=== PATIENT | male | born 1990 | race Caucasian/White ===

== ENCOUNTER 2023-12-21 07:59 | Emergency (ER) | payer SELFPAY | END 2023-12-21 10:16 | disposition home or self-care (01) | LOC: DL.ED 07:59 | DX: S89.91XA Unspecified injury of right lower leg, initial encounter (principal); M23.91 Unspecified internal derangement of right knee; Z79.899 Other long term (current) drug therapy; X50.1XXA Overexertion from prolonged static or awkward postures, initial encounter | CPT/HCPCS: 73562-RT; 99283 ==